=== PATIENT | female | born 1970 | race African-American/Black ===

== ENCOUNTER 2016-05-20 11:53 | Emergency (ER) | payer OTHER ==
[2016-05-20 13:25] LABS: Bilirubin Negative (Negative); Blood, Urine Moderate (Negative); Clarity Slightly Cloudy (Clear); Glucose, Urine (Dipstick) Negative (Negative); Leukocyte Negative (Negative); Nitrite Negative (Negative); Protein, Urine (Dipstick) Negative (Neg-Trace); Specific Gravity, Urine 1.025 (1.005-1.030); Urobilinogen 0.2 mg/dL (0.2-1.0); pH, Urine 5.5 (5.0-9.0)
[2016-05-20 13:31] LABS: Bacteria/HPF Rare-Few HPF (None Seen); WBC/HPF 0-3 HPF (0-3)
[2016-05-20] MEDS ORDERED: predniSONE 20 MG TAB ONE (13:36)
== END 2016-05-20 13:45 | disposition home or self-care (01) ==
LOC: NAV ERS 11:53
DX: S39.012A Strain of muscle, fascia and tendon of lower back, initial encounter (principal); F17.210 Nicotine dependence, cigarettes, uncomplicated; X58.XXXA Exposure to other specified factors, initial encounter
CPT/HCPCS: 81003; 81015; 99283; J7506

== ENCOUNTER 2016-11-30 14:04 | Emergency (ER) | payer OTHER ==
[2016-11-30] MEDS ORDERED: Ibuprofen 800 MG TAB ONE (15:38)
== END 2016-11-30 15:41 | disposition home or self-care (01) ==
LOC: NAV ERS 14:04
DX: S63.502A Unspecified sprain of left wrist, initial encounter (principal); M75.81 Other shoulder lesions, right shoulder; F17.210 Nicotine dependence, cigarettes, uncomplicated; X58.XXXA Exposure to other specified factors, initial encounter
CPT/HCPCS: 99283

== ENCOUNTER 2018-02-03 04:58 | Emergency (ER) | payer OTHER ==
[2018-02-03] MEDS ORDERED: predniSONE 20 MG TAB ONE (06:17)
--- NOTE | 2018-02-03 07:51 | RAD ---
2 VIEW CHEST: Date: 02/03/18 COMPARISON: 04/12/11. INDICATION: Cough, congestion, and pain. FINDINGS: There is no evidence of consolidation, effusion, or pneumothorax. Mild interstitial prominence of the right perihilar region is present. Cardiac silhouette is normal in size. There is osseous degenerati ve change. IMPRESSION: Mild interstitial prominence of right perihilar region. This may reflect bronchiolitis in the correct clinical context. As necessary, imaging follow-up may be obtained. POS: VISHAL
== END 2018-02-03 06:25 | disposition home or self-care (01) ==
LOC: NAV ERS 04:58
DX: J06.9 Acute upper respiratory infection, unspecified (principal); F17.210 Nicotine dependence, cigarettes, uncomplicated
CPT/HCPCS: 71046; 87804; 94640; J7506; J7620

== ENCOUNTER 2019-01-22 06:46 | Emergency (ER) | payer OTHER, SELFPAY ==
[2019-01-22 07:13] LABS: Bilirubin Negative (Negative); Blood, Urine Moderate (Negative); Clarity Clear (Clear); Glucose, Urine (Dipstick) Negative (Negative); Leukocyte Negative (Negative); Nitrite Negative (Negative); Protein, Urine (Dipstick) Negative (Neg-Trace)
[2019-01-22 07:15] LABS: Bacteria/HPF None Seen HPF (None Seen); WBC/HPF 0-3 HPF (0-3)
[2019-01-22 07:34] LABS: Pregnancy Test - Urine (BHCG) Negative (Negative)
[2019-01-22 07:35] LABS: Pregu Control Background? CLEAR/WHITE (CLR/WHITE); Pregu Control Bar Appear? YES (CONTROL BAR); Specific Gravity 1.015 (1.002-1.036)
[2019-01-22 07:41] LABS: #Basophils 0.1 thou/uL (0.0-0.2); #Eosinphils 0.3 thou/uL (0.0-0.7); #Monocytes 0.5 thou/uL (0.11-0.59); #Neutrophils 2.6 thou/uL (1.40-6.50); %Eosinophils 5.3 % (0.0-10.0); %Lymphocytes 36.3 % (21.0-51.0); %Monocytes 9.2 % (0.0-10.0); %Neutrophils 48.1 % (42.0-75.0); Mean Corpuscular HGB CONC 32.8 g/dL (32.0-36.0); Mean Corpuscular Hemoglobin 33.7 pg (27.0-31.0); Mean Platelet Volume 7.8 fL (7.4-10.4); Platelet Count 229 thou/uL (130-400); RBC Distribution Width 12.6 % (11.5-14.5); Red Blood Cell (RBC) Count 4.16 mill/uL (4.20-5.40); White Blood Cell (WBC) Count 5.5 thou/uL (4.8-10.8)
[2019-01-22] MEDS ORDERED: Acetaminophen 325 MG TAB ONE (07:48)
[2019-01-22 08:02] LABS: ALT (SGPT) 16 U/L (8-55); AST (SGOT) 17 U/L (5-34); Albumin 4.1 g/dL (3.5-5.0); Alkaline Phosphatase 195 U/L (40-110); Anion Gap 13 mmol/L (10-20); BUN (Urea Nitrogen) 13 mg/dL (7.0-18.7); Bilirubin, Total 0.3 mg/dL (0.2-1.2); Calc. Creatinine Clearance 0 mL/min (70-130); Calcium 9.5 mg/dL (7.8-10.44); Carbon Dioxide 26 mmol/L (22-29); Chloride 106 mmol/L (98-107); Estimated GFR-MDRD Greater than 90; Globulin 3.4 g/dL (2.4-3.5); Glucose 101 mg/dL (70-105); Lipase 41 U/L (8-78); Protein, Total 7.5 g/dL (6.0-8.3); Sodium 141 mmol/L (136-145)
[2019-01-22] MEDS ORDERED: Ketorolac Tromethamine 30 MG/ML VIAL ONE (08:11)
--- NOTE | 2019-01-22 08:16 | CT ---
EXAM: CT abdomen and pelvis without IV contrast PROVIDED CLINICAL HISTORY: Right flank pain COMPARISON: None FINDINGS: The visualized lung bases are free of significant opacity. The solid abdominal organs demonstrate an unremarkable, unenhanced CT appearance. No evidence for uri nary tract calculi or hydronephrosis. There is no bowel dilatation, inflammatory fat stranding, free fluid or free air apparent. There is n o evidence for appendicitis. No regional lymph node enlargement apparent. The osseous structures demonstrate no concerning lytic o r blastic lesions. IMPRESSION: No evidence for urinary tract calculi or hydronephrosis.
== END 2019-01-22 08:43 | disposition home or self-care (01) ==
LOC: NAV ERS 06:46
DX: R10.9 Unspecified abdominal pain (principal); R31.29 Other microscopic hematuria; D75.89 Other specified diseases of blood and blood-forming organs; F17.210 Nicotine dependence, cigarettes, uncomplicated
CPT/HCPCS: 36415; 74176; 80053; 81003; 81015; 81025; 83690; 85025; 96374; J1885

== ENCOUNTER 2020-03-31 13:59 | Emergency (ER) | payer OTHER ==
[2020-03-31] MEDS ORDERED: Fluorescein Opthalmic Strip ONE (14:17)
[2020-03-31] MEDS ORDERED: Tetracaine HCl 0.5% Ophth Soln 2 ML Bottle ONE (14:17)
== END 2020-03-31 14:40 | disposition home or self-care (01) ==
LOC: NAV ERS 13:59
DX: H00.14 Chalazion left upper eyelid (principal); F17.210 Nicotine dependence, cigarettes, uncomplicated

== ENCOUNTER 2023-03-26 15:08 | Outpatient (CLI) | payer OTHER | END 2023-03-26 15:09 | disposition home or self-care (01) | LOC: NAV RAD 15:08 | PROVIDERS: ATTEND Family Medicine | DX: S16.1XXA Strain of muscle, fascia and tendon at neck level, initial encounter (principal); M47.812 Spondylosis without myelopathy or radiculopathy, cervical region | CPT/HCPCS: 72050 ==

== ENCOUNTER 2023-04-17 14:28 | Emergency (ER) | payer OTHER | END 2023-04-17 15:02 | disposition home or self-care (01) | LOC: NAV ERS 14:28 | DX: K08.89 Other specified disorders of teeth and supporting structures (principal); K02.9 Dental caries, unspecified; I10 Essential (primary) hypertension; F17.210 Nicotine dependence, cigarettes, uncomplicated | CPT/HCPCS: 99283 ==